=== PATIENT | female | born 1970 ===

== ENCOUNTER 2018-01-18 15:45 | Emergency (ER) | payer OTHER ==
[2018-01-18 15:51] VITALS: BP 104/61; PULSE 70; RESP 16; TEMP 98.4; O2SAT 99
--- NOTE | 2018-01-18 15:56 | ED PDOC ---
HPI: Skin/Bite Injury Time Seen by Provider: 01/18/18 15:52 Chief Complaint (Nursing): Abnormal Skin Integrity Chief Complaint (Provider): lesion to neck History Per: Patient, Family (son at bedside is translating for patientin Luxembourgish) Additional Complaint(s): 47-year-old female with no past medical history presents to emergency department for evaluation of skin lesion to left-side of neck that was first noted 6 months ago. Patient states area seems to be getting bigger prompting ED visit today. She denies any pain, drainage, fever or chills. PMD: none Past Medical History Reviewed: Historical Data, Nursing Documentation, Vital Signs Vital Signs: Last Vital Signs Temp 98.4 F 01/18/18 15:48 Pulse 70 01/18/18 15:48 Resp 16 01/18/18 15:48 BP 104/61 01/18/18 15:48 Pulse Ox 99 01/18/18 15:48 - Medical History PMH: No Chronic Diseases - Family History Family History: States: No Known Family Hx - Living Arrangements Living Arrangements: With Family - Social History Current smoker - smoking cessation education provided: No Alcohol: None Drugs: Denies - Allergies Allergies/Adverse Reactions: Allergies Allergy/AdvReac Type Severity Reaction Status Date / Time No Known Allergies Allergy Verified 01/18/18 15:51 Review of Systems ROS Statement: Except As Marked, All Systems Reviewed And Found Negative Constitutional: Negative for: Fever Skin: Positive for: Lesions (to left side of neck) Physical Exam - Reviewed Nursing Documentation Reviewed: Yes Vital Signs Reviewed: Yes - Physical Exam Appears: Positive for: Well, Non-toxic, No Acute Distress Skin: Negative for: Rash Eye Exam: Positive for: Normal appearance Neck: Negative for: Normal (Small hyperpigmented lesion noted to the left anterior neck, no acute infection noted, nontender to palpation, no active drainage or erythema) - ECG O2 Sat by Pulse Oximetry: 99 Pulse Ox Interpretation: Normal Medical Decision Making Medical Decision Makin-year-old female with skin lesion Plan: Patient was instructed to take NSAIDs for pain as needed. Patient was referred to clinic for follow up. Disposition - Clinical Impression Clinical Impression: Skin lesion - Patient ED Disposition Is Patient to be Admitted: No Counseled Patient/Family Regarding: Need For Followup - Disposition Referrals: [facility] [Outside] Disposition: Routine/Home Disposition Time: 15:57 Condition: STABLE Additional Instructions: Take Tylenol or Advil for pain as needed. Follow-up with clinic for further evaluation. Instructions: Moles on the Skin Print Language: YI
== END 2018-01-18 17:00 | disposition home or self-care (01) ==
LOC: H.ER 15:45
DX: L98.9 Disorder of the skin and subcutaneous tissue, unspecified (principal)

== ENCOUNTER 2018-04-03 03:29 | Emergency (ER) | payer SELFPAY ==
[2018-04-03 03:50] VITALS: BMI 24.0
[2018-04-03 03:53] VITALS: BP 110/67; PULSE 61; RESP 16; TEMP 98.7; O2SAT 98
--- NOTE | 2018-04-03 04:34 | ED PDOC ---
HPI: Skin/Bite Injury Time Seen by Provider: 04/03/18 04:20 Chief Complaint (Nursing): Allergic Reaction Chief Complaint (Provider): rash History Per: Patient, Family History/Exam Limitations: no limitations Onset/Duration Of Symptoms: Hrs (9) Current Symptoms Are (Timing): Better Quality Of Symptoms: Itching Additional Complaint(s): 47 y/o female presents for evaluation of diffuse pruritic rash x 9 hours. As per son, rash started 20 minutes after eating cheese and avocado. Patient reports rash has spontaneously improved since onset, but still feels uncomfortable and is unable to sleep. Denies fever, facial swelling, difficulty speaking/swallowing, cough, chest pain, shortness of breath, palpitations, abdominal pain, vomiting/diarrhea, known allergen. Past Medical History Reviewed: Historical Data, Nursing Documentation, Vital Signs Vital Signs: Last Vital Signs Temp 98.7 F 04/03/18 04:17 Pulse 61 04/03/18 04:17 Resp 16 04/03/18 04:17 BP 110/67 04/03/18 04:17 Pulse Ox 98 04/03/18 04:34 - Medical History PMH: No Chronic Diseases - Surgical History Surgical History: No Surg Hx - Family History Family History: States: No Known Family Hx - Living Arrangements Living Arrangements: With Family - Home Medications Home Medications: Ambulatory Orders Medication Instructions Recorded Cetirizine HCl [Zyrtec] 10 mg PO DAILY #5 capsule 04/03/18 Famotidine [Pepcid] 20 mg PO BID #8 tab 04/03/18 predniSONE [Prednisone] 60 mg PO DAILY #12 tab 04/03/18 - Allergies Allergies/Adverse Reactions: Allergies Allergy/AdvReac Type Severity Reaction Status Date / Time No Known Allergies Allergy Verified 01/18/18 15:51 Review of Systems ROS Statement: Except As Marked, All Systems Reviewed And Found Negative Skin: Positive for: Rash Physical Exam - Reviewed Nursing Documentation Reviewed: Yes Vital Signs Reviewed: Yes - Physical Exam Appears: Positive for: Well, Non-toxic, No Acute Distress Head Exam: Positive for: NORMAL INSPECTION, NORMOCEPHALIC Skin: Positive for: Rash (urticaria noted b/l UE, LE, back) Eye Exam: Positive for: Normal appearance ENT: Positive for: Normal ENT Inspection Cardiovascular/Chest: Positive for: Regular Rate, Rhythm Respiratory: Positive for: Normal Breath Sounds Gastrointestinal/Abdominal: Positive for: Normal Exam Back: Positive for: Normal Inspection Extremity: Positive for: Normal ROM Neurologic/Psych: Positive for: Alert, Oriented - ECG O2 Sat by Pulse Oximetry: 98 - Progress ED Course And Treament: Solumedrol IM, benadryl PO, pepcid PO 5:40 Patient states she is feeling better, rash improved family educated on findings, discharged with rx prednisone, pepcid, zyrtec Advised follow up PMD 2-3 days. Return precautions given Disposition - Clinical Impression Clinical Impression: Rash - Patient ED Disposition Is Patient to be Admitted: No Counseled Patient/Family Regarding: Diagnosis, Need For Followup, Rx Given - Disposition Referrals: [facility] [Outside] Disposition: Routine/Home Disposition Time: 05:36 Condition: IMPROVED Prescriptions: Cetirizine HCl [Zyrtec] 10 mg PO DAILY #5 capsule Famotidine [Pepcid] 20 mg PO BID #8 tab predniSONE [Prednisone] 60 mg PO DAILY #12 tab Instructions: Skin Rash Forms: [employer] (Guamanian) Print Language: AMHARIC
== END 2018-04-03 06:00 | disposition home or self-care (01) ==
LOC: H.ER 03:29
DX: T78.40XA Allergy, unspecified, initial encounter (principal)
CPT/HCPCS: 96372; 99283; J2930

== ENCOUNTER 2018-04-04 05:04 | Emergency (ER) | payer SELFPAY ==
[2018-04-04 05:27] VITALS: BMI 20.2
--- NOTE | 2018-04-04 05:34 | ED PDOC ---
HPI: Skin/Bite Injury Time Seen by Provider: 04/04/18 05:06 Chief Complaint (Nursing): Abnormal Skin Integrity Chief Complaint (Provider): rash History Per: Patient, Family History/Exam Limitations: no limitations Onset/Duration Of Symptoms: Days (2) Current Symptoms Are (Timing): Still Present Quality Of Symptoms: Itching Additional Complaint(s): 47 y/o female presents for evaluation of diffuse pruritic rash x 2 days. Patient seen in ED yesterday for same, states she lost the prescriptions that were given upon discharge. States rash has now worsened. Denies fever, facial swelling, throat pain/swelling, difficulty speaking/swallowing, cough, chest pain, shortness of breath, known allergen. Past Medical History Reviewed: Historical Data, Nursing Documentation, Vital Signs Vital Signs: Last Vital Signs Temp 98.2 F 04/04/18 06:54 Pulse 64 04/04/18 06:54 Resp 18 04/04/18 06:54 BP 111/67 04/04/18 06:54 Pulse Ox 100 04/04/18 06:54 - Medical History PMH: No Chronic Diseases - Surgical History Surgical History: No Surg Hx - Family History Family History: States: No Known Family Hx - Living Arrangements Living Arrangements: With Family - Home Medications Home Medications: Ambulatory Orders Medication Instructions Recorded Cetirizine HCl [Zyrtec] 10 mg PO DAILY #5 capsule 04/04/18 Famotidine [Pepcid] 20 mg PO BID #8 tab 04/04/18 predniSONE [Prednisone] 60 mg PO DAILY #12 tab 04/04/18 - Allergies Allergies/Adverse Reactions: Allergies Allergy/AdvReac Type Severity Reaction Status Date / Time No Known Allergies Allergy Verified 01/18/18 15:51 Review of Systems ROS Statement: Except As Marked, All Systems Reviewed And Found Negative Skin: Positive for: Rash Physical Exam - Reviewed Nursing Documentation Reviewed: Yes Vital Signs Reviewed: Yes - Physical Exam Appears: Positive for: Well, Non-toxic, Uncomfortable (itching) Head Exam: Positive for: ATRAUMATIC, NORMAL INSPECTION, NORMOCEPHALIC Skin: Positive for: Rash (diffuse urticarial rash; no lesions, drainage, temp change) ENT: Positive for: Normal ENT Inspection Cardiovascular/Chest: Positive for: Regular Rate, Rhythm Respiratory: Positive for: Normal Breath Sounds Extremity: Positive for: Normal ROM Neurologic/Psych: Positive for: Alert, Oriented - ECG O2 Sat by Pulse Oximetry: 99 - Progress ED Course And Treament: IV solumedro, IV pepcid, IV benadryl On re-eval, rash improving. Patient states she is feeling better. Patient/son educated on findings, discharged with rx prednisone, pepcid, zyrtec Advised follow up PMD 2-3 days. Return precautions given Disposition - Clinical Impression Clinical Impression: Rash - Patient ED Disposition Is Patient to be Admitted: No Counseled Patient/Family Regarding: Diagnosis, Need For Followup, Rx Given - Disposition Referrals: [facility] [Outside] Disposition: Routine/Home Disposition Time: 06:00 Condition: IMPROVED Prescriptions: Cetirizine HCl [Zyrtec] 10 mg PO DAILY #5 capsule Famotidine [Pepcid] 20 mg PO BID #8 tab predniSONE [Prednisone] 60 mg PO DAILY #12 tab Instructions: Skin Rash Print Language: [place] ISLAND[place]
[2018-04-04] MEDS ORDERED: Famotidine 20mg/50ml 20 MG/50 ML BAG IVPB ONE (05:44)
[2018-04-04] MEDS ORDERED: DiphenhydrAMINE 50 mg/ml Inj ONE (05:44)
[2018-04-04] MEDS: DiphenhydrAMINE 50 mg/ml Inj IV STA (05:45)
[2018-04-04] MEDS: Famotidine 20mg/50ml Premix IVPB STA (05:50)
[2018-04-04 06:56] VITALS: BP 111/67; PULSE 64; RESP 18; TEMP 98.2
[2018-04-04 20:44] VITALS: O2SAT 99
== END 2018-04-04 07:07 | disposition home or self-care (01) ==
LOC: H.ER 05:04
DX: R21 Rash and other nonspecific skin eruption (principal)
CPT/HCPCS: 81025; 96365; 96375; 99283; J1200; J2930